=== PATIENT | female | born 1950 | race Caucasian/White ===

== ENCOUNTER 2019-06-04 12:14 | Day surgery (SDC) | payer MEDICARE, OTHER ==
[2019-06-04] MEDS ORDERED: Depo-Medrol 40 MG/ML IM ONE (12:15)
[2019-06-04] MEDS ORDERED: Marcaine 0.5% SDV 10 ML IJ ONE (12:15)
[2019-06-04] MEDS ORDERED: Xylocaine 1% Vial 30 ML PF IJ ONE (12:15)
--- NOTE | 2019-06-05 02:40 | XRAY ---
Indication: Right SI joint injection. Intraoperative fluoroscopy was provided for 14 seconds. A single digital lateral image demonstrates the spinal needle tip to be projected over the mid sacrum. I do not have a PA image. Correlate with intraoperative findings/report.
--- NOTE | 2019-06-05 12:03 | XRAY ---
14 seconds fluoroscopy time in surgery for right SI joint injection.
== END 2019-06-04 13:36 | disposition home or self-care (01) ==
LOC: SDC-PAIN 12:14
PROVIDERS: ATTEND Psychiatry & Neurology Pain Medicine
DX: M46.1 Sacroiliitis, not elsewhere classified (principal); I25.10 Atherosclerotic heart disease of native coronary artery without angina pectoris; F41.8 Other specified anxiety disorders; Z79.899 Other long term (current) drug therapy
CPT/HCPCS: 72020; 77002; G0260; 27096; J1030; J2001

== ENCOUNTER 2019-06-10 06:36 | Day surgery (SDC) | payer MEDICARE, OTHER ==
[2019-06-10] MEDS ORDERED: Lactated Ringers 1,000 ML IV ONE (06:45)
[2019-06-10] MEDS ORDERED: TETRACAINE 0.5% STERI-UNIT SOL OP ONE ×2 (07:00)
[2019-06-10] MEDS ORDERED: Ak-Dilate OPHTHALMIC*** 1.065 ML, Cyclogyl 1% OPHTH SOL 5 ML 1.065 ML, GATIFLOXACIN 0.5... OP ONE ×4 (07:00)
[2019-06-10] MEDS ORDERED: Lactated Ringers 1,000 ML IV SCH (07:00)
[2019-06-10] MEDS ORDERED: BETADINE 5% OPHTHALMIC 30 ML OP ONE (10:00)
[2019-06-10] MEDS ORDERED: Epinephrine Preservative Free 1 MG/ML INTRAOP ONE (10:00)
[2019-06-10] MEDS ORDERED: Zofran 4 MG/2 ML VIAL IV PRN (10:00)
[2019-06-10] MEDS ORDERED: ACETAZOLAMIDE 250 MG TABLET PO ONE (10:00)
[2019-06-10] MEDS ORDERED: BSS 500 ML, Fortaz/Tazicef 1 GM** 0.2 G IO ONE ×2 (10:00)
[2019-06-10] MEDS ORDERED: LIDOCAINE HCL 1% AMPUL 5 ML IJ ONE (10:00)
[2019-06-10] MEDS ORDERED: DIPRIVAN 200 MG/20 ML IV ONE (10:02)
[2019-06-10 11:46] VITALS: O2SAT 94
[2019-06-10 11:55] VITALS: BP 132/78; PULSE 68
--- NOTE | 2019-06-10 15:33 | OP ---
DATE/TIME OF OPERATION: 06/10/2019 1002 TIME DICTATED: 1442 PREOPERATIVE DIAGNOSIS: Senile cataract of right eye. POSTOPERATIVE DIAGNOSIS: Senile cataract of right eye. SURGEON: Ally Bar MD FIGHTING VEHICLE INFANTRYMAN: None. OPERATION: Cataract extraction of right eye with an intraocular lens implant. STANDARD __X___ COMPLEX ANESTHESIA: MAC. ___X___ Monitored anesthesia care in combination with topical and intra-cameral anesthesia (because of the established specific risk of reflux, arrhythmias, or an anxiety attack associated with ocular manipulation as well as difficulty of the welt beater to manage such potentially catastrophic events while simultaneously attempting to complete the surgical procedure, it was deemed necessary for the patient's safety to have an anesthesiologist or a nurse mortgage loan coordinator present during the procedure whenever possible. The anesthesiologist or the nurse mortgage loan coordinator was utilized to monitor and regulate the intravenous sedation of the patient, so the patient was cooperative, relaxed, and comfortable). Topical anesthesia using Tetracaine eye drops together with intra cameral anesthesia using Lidocaine 1% MPF. The nurse was utilized to monitor the patient. ANESTHESIA PROVIDER: Dudley Barrow CRNA. COMPLICATIONS: None. BLOOD LOSS: None. INDICATIONS: The patient is undergoing cataract surgery in the hopes of eliminating the visual complaints and difficulty. PROCEDURE: After arriving at the facility's outpatient surgery area, an IV was started; the patient was given 5 mg of p.o. Versed. (If an anesthesia provider was not monitoring the patient) The patient was then given topical anesthetic Tetracaine eye drops. A cotton pellet was soaked into a solution of a combination of Zymaxid 0.5%, Sina-Synephrine 2.5% and Ocufen (other drops might have been substituted referenced in the patient's record). The pellet was inserted by the RN into the lower conjunctival cul-de-sac with a sterile forceps and left for 20 minutes. The pellet was then removed by the RN with a sterile forceps before taking the patient to the operating room. The preoperative area nurse identified the patient and marked the correct eye to be operated on. I identified the correct eye to be operated on and marked it appropriately in the outpatient surgery area. The patient was then taken into the operating room. Tetracaine eye drops were installed again in the correct eye. The eyelids and the lashes and the lid margins were scrubbed with Betadine solution. One drop of the diluted Betadine solution was placed in the conjunctival cul-de-sac for 45 seconds and then was irrigated. A drop of Tetracaine Gel was placed in the conjunctival cul-de-sac. The patient's forehead was taped to secure it during the procedure. The patient was monitored. The patient was then draped in the usual way for this procedure. An eye speculum was used to separate the eyelids. The eye was then fixated and a temporal 2.5 mm incision was made in the clear cornea temporally at the limbus. Through the incision, 0.25 cc of 1% non-preserved lidocaine was injected into the anterior chamber for intracameral anesthesia. The anterior chamber was then filled with viscoelastic. The pupil was small. I felt that it would be safer to mechanically dilate the pupil. A Malyugin ring was used at this point which dilated the pupil. That was removed at the end of the procedure prior to aspiration of the viscoelastic from the anterior chamber and posterior to the intraocular lens implant. The cataract had a great amount of cortical changes. That rendered seeing the anterior capsule difficult for a safe performance of an anterior capsulotomy. I injected an air bubble into the anterior chamber. I then injected 1 ML of vision blue solution into the anterior chamber. The vision blue solution was irrigated from the anterior chamber after 30 seconds. The anterior capsule was stained which facilitated performing the anterior capsulotomy safely. After that was completed, a cystotome was introduced into the anterior chamber and a round anterior capsulotomy was performed. The capsule was removed by a forceps. Hydrodissection was next carried utilizing a 25-gauge cannula and balanced salt solution to delineate the cortical material from the capsule and the nucleus from the cortical material. The nucleus was rotated freely into the capsular bag with no difficulty. The phaco tip of the [employer] Phaco[employer]ulsifier was introduced into the anterior chamber and two grooves were made into the nucleus 90 degrees apart. Using two spatulas resulted into the nucleus being fractured into four quadrants. The phaco tip was then used to remove each quadrant of the nucleus. Viscoelastic was used during this process to protect the corneal endothelium. Once the entire nucleus was removed, the phaco tip then was removed and the irrigation tip was introduced into the eye and the cortex was removed. The posterior capsule was polished. It was noticed that there was a tear into the posterior capsule with few vitreous strands into the pupil plan. An anterior vitrectomy was performed. A 23.50 diopter, [id number], posterior chamber lens implant, was inspected and found to be grossly normal. The implant was inserted into the implant injector cartridge; Viscoelastic again was introduced into the anterior chamber, which filled the capsular bag. The implant injector's cartridge tip was placed at the limbal wound and the posterior chamber implant was released into the capsular bag and rotated appropriately. The implant was found to be into the capsular bag and it was centered. 0.2 ml of Tri-Moxi was introduced via 27 gauge cannula into the vitreous cavity through the ciliary processes. Viscoelastic was aspirated from the anterior chamber and posterior to the intraocular lens implant from the capsular bag using the irrigating tip. The anterior chamber was irrigated and filled with 5 cc antibiotic solution (500 cc of BSS plus 2 ml of Fortaz 100 mg/ml) ( if patient was not allergic to the medication). The lips of the corneal incision were hydrated using BSS solution. The anterior chamber was checked and found to be water tight. __X__ One drop each of antibiotic, steroid and NSAID drops (refer to chart for drops used) were placed in the conjunctival cul-de-sac of the operated eye. Patient tolerated the procedure quite well and left the operating room in satisfactory condition. DISCHARGE SUMMARY: The patient was released in stable condition. The patient and those with the patient were given an instruction sheet as of how to care for the eye after surgery as well as counseling on any abnormal laboratory studies by the postoperative RN. The patient was also given an appointment card for follow-up in the office and is to call immediately for any difficulties including but not limited to pain in the eye, decreased vision, discharge from the eye, headache and or fever. DISCHARGE DIAGNOSIS: Pseudophakia of right eye.
== END 2019-06-10 11:40 | disposition home or self-care (01) ==
LOC: SDC 06:36
PROVIDERS: ATTEND Ophthalmology
DX: H25.811 Combined forms of age-related cataract, right eye (principal); I10 Essential (primary) hypertension; E07.9 Disorder of thyroid, unspecified; F41.9 Anxiety disorder, unspecified; M19.90 Unspecified osteoarthritis, unspecified site; Z79.899 Other long term (current) drug therapy
CPT/HCPCS: C1780; J0171; J2704; A9270-GY

== ENCOUNTER 2020-03-10 09:46 | Day surgery (SDC) | payer MEDICARE, OTHER ==
[2020-03-10] MEDS ORDERED: Marcaine 0.5% SDV 10 ML IM ONE (09:47)
[2020-03-10] MEDS ORDERED: Depo-Medrol 40 MG/ML IM ONE (09:47)
[2020-03-10] MEDS ORDERED: Ketamine HCl 50 MG/ML ONE (11:35)
[2020-03-10] MEDS ORDERED: DIPRIVAN 200 MG/20 ML IV ONE (11:35)
--- NOTE | 2020-03-10 12:30 | XRAY ---
Indication: Bilateral SI joint injection. Intraoperative fluoroscopy was provided for 19 seconds. 4 digital spot images submitted for interpretation demonstrates posterior needle tip projecting over the inferior left and right SI joints. Correlate with intraoperative findings/report.
--- NOTE | 2020-03-10 14:26 | XRAY ---
19 seconds of fluoroscopy was used in surgery for a bilateral SI joint injection.
[2020-03-10] MEDS ORDERED: Lactated Ringers 1,000 ML IV ONE (14:53)
== END 2020-03-10 11:57 | disposition home or self-care (01) ==
LOC: SDC-PAIN 09:46
PROVIDERS: ATTEND Psychiatry & Neurology Pain Medicine
DX: M46.1 Sacroiliitis, not elsewhere classified (principal); M06.9 Rheumatoid arthritis, unspecified; I25.10 Atherosclerotic heart disease of native coronary artery without angina pectoris; H40.9 Unspecified glaucoma; F41.8 Other specified anxiety disorders; Z79.899 Other long term (current) drug therapy
CPT/HCPCS: 64451; 72202; 77002; J1030; J2704

== ENCOUNTER 2020-03-31 14:43 | Day surgery (SDC) | payer MEDICARE, OTHER ==
[2020-03-31] MEDS ORDERED: Depo-Medrol 40 MG/ML IM ONE (14:44)
[2020-03-31] MEDS ORDERED: Xylocaine 1% Vial 30 ML PF IJ ONE (14:44)
[2020-03-31] MEDS ORDERED: Marcaine 0.5% SDV 10 ML IJ ONE (14:44)
--- NOTE | 2020-03-31 16:55 | XRAY ---
Indication: Left hip injection. Intraoperative fluoroscopy was provided for 50 seconds. Single digital spot image submitted for interpretation demonstrates needle tip projecting just lateral to the left femur neck. Small amount of contrast injected for needle tip placement. Correlate with intraoperative findings/report.
--- NOTE | 2020-03-31 16:55 | XRAY ---
Indication: Right hip injection. Intraoperative fluoroscopy was provided for 1 minute 4 seconds. Single digital spot image submitted for interpretation demonstrates needle tip projecting just lateral to the right femur neck. Small amount of contrast injected for needle tip placement. Correlate with intraoperative findings/report.
--- NOTE | 2020-03-31 17:18 | XRAY ---
50 seconds of fluoroscopy was used in surgery for a left intra-articular hip injection.
--- NOTE | 2020-03-31 17:18 | XRAY ---
1 minute 4 seconds of fluoroscopy was used in surgery for a right intra-articular hip injection.
== END 2020-03-31 16:36 | disposition home or self-care (01) ==
LOC: SDC-PAIN 14:43
PROVIDERS: ATTEND Psychiatry & Neurology Pain Medicine
DX: M16.0 Bilateral primary osteoarthritis of hip (principal); Z79.899 Other long term (current) drug therapy
CPT/HCPCS: 20610; 73501; 77002; J1030; J2001; Q9966

== ENCOUNTER 2020-07-14 12:40 | Day surgery (SDC) | payer MEDICARE, OTHER ==
[2020-07-14] MEDS ORDERED: Xylocaine 1% Vial 30 ML PF IJ ONE (12:41)
[2020-07-14] MEDS ORDERED: Depo-Medrol 40 MG/ML IM ONE (12:41)
[2020-07-14] MEDS ORDERED: BUPIVACAINE 0.5% VIAL IJ ONE (12:41)
--- NOTE | 2020-07-14 15:04 | XRAY ---
Indication: Left greater trochanter bursa injection. Intraoperative fluoroscopy was provided for 9 seconds. Single digital spot image submitted for interpretation demonstrates needle tip just lateral to the left femur greater trochanter. Small amount of contrast injected for needle tip placement. Correlate with intraoperative findings/report.
--- NOTE | 2020-07-14 15:06 | XRAY ---
Indication: Right greater trochanter bursa injection. Intraoperative fluoroscopy was provided for 11 seconds. Single digital spot image submitted for interpretation demonstrates needle tip just lateral to the right femur greater trochanter. Small amount of contrast injected for needle tip placement. Correlate with intraoperative findings/report.
--- NOTE | 2020-07-14 15:14 | XRAY ---
11 seconds of fluoroscopy was used in surgery for a right greater trochanteric bursa injection.
--- NOTE | 2020-07-14 15:14 | XRAY ---
9 seconds of fluoroscopy was used in surgery for a left greater trochanteric bursa injection.
== END 2020-07-14 14:42 | disposition home or self-care (01) ==
LOC: SDC-PAIN 12:40
PROVIDERS: ATTEND Psychiatry & Neurology Pain Medicine
DX: M70.62 Trochanteric bursitis, left hip (principal); M70.61 Trochanteric bursitis, right hip; F41.8 Other specified anxiety disorders; I25.10 Atherosclerotic heart disease of native coronary artery without angina pectoris; Z79.899 Other long term (current) drug therapy
CPT/HCPCS: 20610; 73501; 77002; J1030; J2001; Q9966

== ENCOUNTER 2021-03-23 15:07 | Day surgery (SDC) | payer MEDICARE, OTHER ==
[2021-03-23] MEDS ORDERED: Xylocaine 1% Vial 30 ML PF IJ ONE (15:08)
[2021-03-23] MEDS ORDERED: Sodium Chloride 0.9(Preservative Free) 10 ML IJ ONE (15:08)
[2021-03-23] MEDS ORDERED: Depo-Medrol 40 MG/ML IM ONE (15:08)
--- NOTE | 2021-03-23 20:06 | XRAY ---
Indication: Left L4-S1 transforaminal MATTHEW. Intraoperative fluoroscopy provided for 24 seconds. 2 digital spot image submitted for interpretation demonstrates posterior needle tips projecting over the left L4 and L5 nerve roots. Small amount of contrast injected for needle tip placement. Correlate with intraoperative findings/report.
--- NOTE | 2021-03-24 08:37 | XRAY ---
24 seconds fluoroscopy time in surgery for left L4-S1 transforaminal MATTHEW.
== END 2021-03-23 17:22 | disposition home or self-care (01) ==
LOC: SDC-PAIN 15:07
PROVIDERS: ATTEND Psychiatry & Neurology Pain Medicine
DX: M54.16 Radiculopathy, lumbar region (principal); I25.10 Atherosclerotic heart disease of native coronary artery without angina pectoris; F41.9 Anxiety disorder, unspecified; F32.9 Major depressive disorder, single episode, unspecified; M06.9 Rheumatoid arthritis, unspecified; Z79.899 Other long term (current) drug therapy
CPT/HCPCS: 64483; 64484; 72020; 77003; J1030; J2001; Q9966

== ENCOUNTER 2021-04-11 05:49 | Day surgery (SDC) | payer MEDICARE, OTHER ==
[2021-04-11] MEDS ORDERED: Lactated Ringers 1,000 ML IV SCH (06:30)
[2021-04-11] MEDS ORDERED: DIPRIVAN 200 MG/20 ML IV ONE ×2 (07:56→08:20)
[2021-04-11 09:10] VITALS: O2SAT 98
[2021-04-11 09:15] VITALS: BP 136/70; PULSE 62
--- NOTE | 2021-04-12 08:48 | OP ---
SURGERY DATE/TIME: 04/11/2021 0758 PREOPERATIVE DIAGNOSIS: History of colon polyps and positive Cologuard test. POSTOPERATIVE DIAGNOSIS: Small polyps in the ascending, sigmoid and rectum. PROCEDURE: Colonoscopy with cold forceps biopsies. SURGEON: Dr. Menendez. ANESTHESIA: MAC. Medications given by anesthesia department. HISTORY: The patient is a 70 year-old white female who reports having colon polyps on examinations before. She reports Dr. Daniel Bell was doing them about every two years until he left and she has not had an evaluation since that time. The patient did show up with a positive Cologuard and prompted her to request doing her colonoscopy. The patient was reappraised of the risks of the procedure including the risk of perforation, phlebitis, untoward reaction to medication, bleeding and missed lesions. The patient verbalized her understanding and desired to have the procedure performed. DESCRIPTION OF PROCEDURE: The patient was given the medications by the anesthesia department. She had continuous pulse oximetry, ECG monitoring, intermittent blood pressure monitoring and tidal CO2 monitoring during the examination. She was placed in the left lateral decubitus position. A digital rectal examination was performed and revealed small hemorrhoids, normal anal sphincter tone and no masses. The flexible Olympus pediatric colonoscope was used to intubate the rectum. A view of the colon was developed sequentially to the cecum. Upon insertion and withdrawal including a retroflex view in the rectum, was noted one small polyp measuring approximately 0.7 cm in size in the ascending colon biopsied using cold biopsy technique destroying the lesion. There was also noted to be small polyp in the sigmoid colon likewise biopsied and one in the rectum that was noted on retroflex view. These were also biopsied to destruction using cold biopsy forceps. The scope was removed from the patient who tolerated the procedure well and was sent back to OP recovery in good condition. The prep was noted to be fair to good.
== END 2021-04-11 09:15 | disposition home or self-care (01) ==
LOC: SDC 05:49
PROVIDERS: ATTEND Family Medicine
DX: R19.5 Other fecal abnormalities (principal); D12.2 Benign neoplasm of ascending colon; Z86.010 Personal history of colon polyps; K64.9 Unspecified hemorrhoids; K62.1 Rectal polyp
CPT/HCPCS: 88305; J2704

== ENCOUNTER 2021-06-15 16:23 | Day surgery (SDC) | payer MEDICARE, OTHER ==
[2021-06-15] MEDS ORDERED: Depo-Medrol 40 MG/ML IM ONE (16:24)
[2021-06-15] MEDS ORDERED: Xylocaine 1% Vial 30 ML PF IJ ONE (16:24)
[2021-06-15] MEDS ORDERED: BUPIVACAINE 0.5% VIAL IJ ONE (16:24)
--- NOTE | 2021-06-16 11:21 | XRAY ---
23 seconds fluoroscopy time in surgery for bilateral SI joint injections.
--- NOTE | 2021-06-18 23:27 | XRAY ---
Indication: Bilateral SI joint injections. Intraoperative fluoroscopy was provided for 23 seconds. 4 digital spot images submitted for interpretation demonstrate a needle tip in the projection of the inferior margin of the left and right sacroiliac joints. Correlate with intraoperative findings/report.
== END 2021-06-15 17:45 | disposition home or self-care (01) ==
LOC: SDC-PAIN 16:23
PROVIDERS: ATTEND Psychiatry & Neurology Pain Medicine
DX: M46.1 Sacroiliitis, not elsewhere classified (principal); Z79.899 Other long term (current) drug therapy
CPT/HCPCS: 27096; 72202; 77002; J1030; J2001; G0260

== ENCOUNTER 2021-07-13 14:43 | Day surgery (SDC) | payer MEDICARE, OTHER ==
[2021-07-13] MEDS ORDERED: Sodium Chloride 0.9(Preservative Free) 10 ML IJ ONE (14:44)
[2021-07-13] MEDS ORDERED: Depo-Medrol 40 MG/ML IM ONE (14:44)
[2021-07-13] MEDS ORDERED: Xylocaine 1% Vial 30 ML PF IJ ONE (14:44)
--- NOTE | 2021-07-13 17:00 | XRAY ---
Indication: Left L4-S1 transforaminal MATTHEW. Intraoperative fluoroscopy provided for 37 seconds. 4 digital spot image submitted for interpretation demonstrates posterior needle tips projecting over the expected left L4 and L5 nerve roots. Small amount of contrast injected for needle tip placement. Correlate with intraoperative findings/report.
--- NOTE | 2021-07-13 20:54 | XRAY ---
37 seconds of fluoroscopy was used in surgery for a left L4-S1 transforaminal MATTHEW.
== END 2021-07-13 16:25 | disposition home or self-care (01) ==
LOC: SDC-PAIN 14:43
PROVIDERS: ATTEND Psychiatry & Neurology Pain Medicine
DX: M54.16 Radiculopathy, lumbar region (principal); Z79.899 Other long term (current) drug therapy
CPT/HCPCS: 36415; 64483; 64484; 72100; 77003; 82306; 84443; 85025; 87624; 88175; J1030; J2001; Q9966

== ENCOUNTER 2023-07-21 20:54 | Observation (INO) | payer MEDICARE, OTHER ==
[2023-07-21] MEDS ORDERED: DUONEB 0.5-3 MG/3 ml Neb IH ONE ×4 (21:57→23:32)
[2023-07-21 22:34] LABS: Absolute Neutrophil Ct (ANC) 3.84 x10^3/uL (1.4-6.9); BASOPHIL % 0.5 % (0.0-0.4); Basophil (Absolute #) 0.03 x10^3/uL (0-0.4); Eosinophil % 3.6 % (0.00-5.0); Eosinophil (Absolute #) 0.24 x10^3/uL (0-0.5); Hematocrit 39.3 % (35-47); Hemoglobin 12.3 g/dL (12.0-16.0); IMMATURE GRAN # 0.02 x10^3u/L (0.00-0.03); IMMATURE GRAN % 0.3 % (0.00-0.4); Lymphocyte (Absolute #) 1.94 x10^3/uL (1.0-4.6); Lymphocytes % 29.4 % (24.0-44.0); Mean Cell Volume 97.5 fL (78-100); Mean Corpuscular Hemoglobin 30.5 pg (26-32); Mean Corpuscular Hgb Concent. 31.3 g/dL (32-36); Mean Platelet Volume 10.4 fL (7.5-11.0); Monocyte (Absolute #) 0.53 x10^3/uL (0.0-1.3); Neutrophil % 58.2 % (36.0-66.0); Platelet Count 301 x10^3/uL (150-450); Red Blood Count 4.03 x10^6/uL (4.1-5.4); White Blood Count 6.6 x10^3/uL (4.0-10.5)
[2023-07-21 22:54] LABS: ALBUMIN 4.1 g/dL (3.5-5.0); ALKALINE PHOSPHATASE 82 U/L (38-126); ANION GAP 10.1 MEQ/L (5-15); BLOOD UREA NITROGEN 13 mg/dL (7-17); CHLORIDE 107 mmol/L (98-107); Calcium 9.4 mg/dL (8.4-10.2); Carbon Dioxide 28 mmol/L (22-30); Creatinine 1 0.68 mg/dL (0.52-1.04); EST GLOMERULAR FILTRATION RATE > 60.0 ML/MIN; Glucose 109 mg/dL (74-106); Potassium 3.9 mmol/L (3.5-5.1); SGOT/AST 31 U/L (14-36); SGPT/ALT 24 U/L (0-35); SODIUM 142 mmol/L (137-145); Total Protein 6.6 g/dL (6.3-8.2)
[2023-07-21 23:16] LABS: INFLUENZA A NEGATIVE (NEGATIVE); INFLUENZA B NEGATIVE (NEGATIVE); RESPIRATORY SYNCTIAL VIRUS NEGATIVE (NEGATIVE); SARS-CoV-2 Xpert Express NEGATIVE (NEGATIVE)
[2023-07-21] MEDS ORDERED: solu-MEDROL 125 MG, Sterile H2O 10 ml 2 ML IV ONE ×2 (23:28)
[2023-07-21] MEDS ORDERED: Sterile H2O 10 ml IJ ONE (23:30)
[2023-07-21] MEDS ORDERED: solu-MEDROL ONE (23:31)
--- NOTE | 2023-07-22 00:47 | ERPHSYRPT ---
- History of Present Illness Time Seen by Provider: 07/21/23 21:35 Source: patient Exam Limitations: no limitations Patient Subjective Stated Complaint: cough and shortness of breath since sunday Triage Nursing Assessment: inspiratory and expiratory rubs noted. pt coughs when tries to breathe deeply. Physician History: 73yo f presents w/ complaints of sob cough. Pt states she was in [place] on vacation yesterday and started having a significant dry cough. Pt reports she was seen at urgent care in [place] and told she had bronchitis, was not started on medication at that time. Pt states her cough has worsened and she is not very wheezy, feels like her chest is tight when she coughs, and complains of sinus congestion and runny nose. Pt is not aware of sick contacts but did travel by plane. Pt currently denies cp, n/v/abdominal pain. Timing/Duration: yesterday Cough Quality/Degree: moderate, dry cough Possible Cause: no prior episodes Modifying Factors: Improves With: coughing, deep breath Associated Symptoms: denies symptoms Allergies/Adverse Reactions: No Known Drug Allergies Allergy (Verified 06/10/19 06:51) Home Medications: Ascorbic Acid [Vitamin C] 500 mg PO DAILY 06/04/19 [History] Carvedilol 3.125 mg [Coreg 3.125 MG] 3.125 mg PO BID 06/04/19 [History] Escitalopram Oxalate [Lexapro] 20 mg PO DAILY 06/04/19 [History] Ezetimibe [Zetia] 10 mg PO DAILY 06/04/19 [History] Levothyroxine Sodium 100 Mcg [Synthroid 100 Mcg] 100 mcg PO DAILY 06/04/19 [History] Meloxicam [Mobic] 15 mg PO DAILY 06/04/19 [History] Pregabalin [Lyrica] 75 mg PO BID 06/04/19 [History] Ropinirole HCl 0.5 mg [Requip 0.5 MG] 1.5 mg PO DAILY 06/04/19 [History] Fenofibrate 160 mg PO DAILY 04/08/21 [History] Anastrozole [Arimidex] 1 mg PO HS 07/21/23 [History] Aripiprazole [Abilify] 2 mg PO DAILY 07/21/23 [History] Calcium Carbonate/Vitamin D3 [Super Calcium 600-Vit D3 400] 1 tab PO HS 07/21/23 [History] Famotidine [Acid Controller] 20 mg PO HS 07/21/23 [History] Guaifenesin [Mucinex] 600 mg PO DAILY 07/21/23 [History] Hx Tetanus, Diphtheria Vaccination/Date Given: No Hx Influenza Vaccination/Date Given: No Hx Pneumococcal Vaccination/Date Given: Yes Immunizations Up to Date: Yes Travel Risk - International Travel Have you traveled outside of the country in past 3 weeks: No - Coronavirus Screening Symptoms: Cough: New Onset, Shortness of Breath, Headaches/Body Aches/Fatigue Close contact with a COVID-19 positive Pt in past 14-21 Days: No - Vaccine Status Have you recieved a Covid-19 vaccination: Yes Cat Scan Tech: Moderna - Vaccination Dates Date of 2cond Vaccination (if applicable): 2020 - Review of Systems Constitutional: No Fever, No Chills Eyes: No Symptoms Ears, Nose, & Throat: Sinus Drainage Respiratory: Cough, Dyspnea, Wheezing Cardiac: No Chest Pain, No Edema, No Syncope Abdominal/Gastrointestinal: No Abdominal Pain, No Nausea, No Vomiting, No Diarrhea Musculoskeletal: No Back Pain, No Neck Pain Neurological: No Symptoms, No Dizziness, No Focal Weakness, No Sensory Changes - Past Medical History Neurological History: Migraines ENT History: Glaucoma Cardiac History: Coronary Artery Disease Respiratory History: No Pertinent History Endocrine Medical History: Hypothyroidism Musculoskeletal History: Osteoarthritis GI Medical History: No Pertinent History History: No Pertinent History Psycho-Social History: Depression Female Reproductive Disorders: No Pertinent History, Breast Cancer Other Medical History: partial blockage in the heart, buldging discs in the back. - Past Surgical History Past Surgical History: Yes Neuro Surgical History: No Pertinent History Cardiac: Cardiac Catheterization Respiratory: No Pertinent History Gastrointestinal: No Pertinent History Genitourinary: No Pertinent History Musculoskeletal: No Pertinent History Female Surgical History: Section Other Surgical History: hemorrhoidectomy, 03/14 lumpectomy for breast cancer - Social History Smoking Status: Current every day smoker How long have you smoked: 30 Exposure to second hand smoke: No Drug Use: none Patient Lives Alone: Yes - Nursing Vital Signs Nursing Vital Signs: Initial Vital Signs Temperature 98.4 F 07/21/23 21:21 Pulse Rate 67 07/21/23 21:21 Respiratory Rate 22 07/21/23 21:21 Blood Pressure 174/84 07/21/23 21:21 O2 Sat by Pulse Oximetry 90 L 07/21/23 21:21 Pain Scale Pain Intensity 3 - Physical Exam General Appearance: no apparent distress, alert Ears, Nose, Throat Exam: normal ENT inspection, TMs normal, pharynx normal, moist mucous membranes Respiratory Exam: diminished breath sounds, wheezing (diffuse expiratory wheezing) Cardiovascular Exam: regular rate/rhythm, normal heart sounds Gastrointestinal/Abdomen Exam: soft, No tenderness SpO2: 95 O2 Delivery: Nasal Cannula (3L) - Course EKG Interpreted by Me: RATE, Sinus Rhythm, Left [place] Deviation, NORMAL INTERVALS, Right Bundle Branch Block, NORMAL ST-T - Radiology Exams Chest X-ray Interpretation: Interpreted by me, No Fracture, No Pneumonia, No Pneumothorax, No Infiltrates Ordered Tests: Active Orders 24 hr Category Date Time Status EKG-ER Only STAT Care 07/21/23 21:57 Active CHEST 2 VIEWS (PA AND LAT) Stat Exams 07/21/23 21:57 Taken CBC W DIFF Stat Lab 07/21/23 22:31 Completed CMP Stat Lab 07/21/23 22:31 Completed TROPONIN Q4H Lab 07/21/23 22:31 Completed TROPONIN Q4H Lab 07/22/23 02:00 Ordered TROPONIN Q4H Lab 07/22/23 06:00 Ordered Respiratory Therapy Assessment DAILY RT 07/21/23 22:23 Completed Respiratory Therapy Assessment DAILY RT 07/21/23 23:38 Completed Transfer Order Routine Transfer 07/22/23 Ordered Medication Summary Discontinued Medications Generic Name Dose Route Start Last Admin Trade Name Freq PRN Reason Stop Dose Admin Albuterol/Ipratropium 3 ml 07/21/23 21:57 07/21/23 22:15 Ipratropium/Albuterol Sulfate 3 Ml Ampul.Neb IH 07/21/23 21:58 3 ml STAT ONE Administration Albuterol/Ipratropium Confirm 07/21/23 22:16 Ipratropium/Albuterol Sulfate 3 Ml Ampul.Neb Administered 07/21/23 22:17 Dose 3 ml IH .STK-MED ONE Albuterol/Ipratropium 3 ml 07/21/23 23:28 07/21/23 23:42 Ipratropium/Albuterol Sulfate 3 Ml Ampul.Neb IH 07/21/23 23:29 3 ml STAT ONE Administration Albuterol/Ipratropium Confirm 07/21/23 23:32 Ipratropium/Albuterol Sulfate 3 Ml Ampul.Neb Administered 07/21/23 23:33 Dose 3 ml IH .STK-MED ONE Methylprednisolone Sodium 0 mg 07/21/23 23:28 07/21/23 23:31 Succinate 125 mg/ Sterile IV 07/21/23 23:29 125 mg Water 2 ml STAT ONE Administration Methylprednisolone Sodium Succinate Confirm 07/21/23 23:31 Methylprednis Sod Succ 125 Mg/2 Ml Vial Administered 07/21/23 23:32 Dose 125 mg .ROUTE .STK-MED ONE Sterile Water Confirm 07/21/23 23:30 Water For Injection,Sterile 10 Ml Vial Administered 07/21/23 23:31 Dose 10 ml IJ .STK-MED ONE Lab/Rad Data: Laboratory Result Diagrams 07/21/23 22:31 07/21/23 22:31 Laboratory Results 07/21/23 07/21/23 07/21/23 Range/Units 22:31 22:31 22:31 WBC (4.0-10.5) x10^3/uL RBC (4.1-5.4) x10^6/uL Hgb (12.0-16.0) g/dL Hct (35-47) % MCV (78-100) fL MCH (26-32) pg MCHC (32-36) g/dL RDW (11.5-14.0) % Plt Count (150-450) x10^3/uL MPV (7.5-11.0) fL Gran % (36.0-66.0) % Immature Gran % (Auto) (0.00-0.4) % Nucleat RBC Rel Count (0.00-0.1) % Eos # (Auto) (0-0.5) x10^3/uL Immature Gran # (Auto) (0.00-0.03) x10^3u/L Absolute Lymphs (auto) (1.0-4.6) x10^3/uL Absolute Monos (auto) (0.0-1.3) x10^3/uL Absolute Nucleated RBC (0.00-0.01) x10^3u/L Lymphocytes % (24.0-44.0) % Monocytes % (0.0-12.0) % Eosinophils % (0.00-5.0) % Basophils % (0.0-0.4) % Absolute Granulocytes (1.4-6.9) x10^3/uL Basophils # (0-0.4) x10^3/uL Sodium 142 (137-145) mmol/L Potassium 3.9 (3.5-5.1) mmol/L Chloride 107 (98-107) mmol/L Carbon Dioxide 28 (22-30) mmol/L Anion Gap 10.1 (5-15) MEQ/L BUN 13 (7-17) mg/dL Creatinine 0.68 (0.52-1.04) mg/dL Estimated GFR > 60.0 ML/MIN Glucose 109 H (74-106) mg/dL Calcium 9.4 (8.4-10.2) mg/dL Total Bilirubin 0.30 (0.2-1.3) mg/dL AST 31 (14-36) U/L ALT 24 (0-35) U/L Alkaline Phosphatase 82 (38-126) U/L Troponin I < 0.012 (0.000-0.034) ng/mL Serum Total Protein 6.6 (6.3-8.2) g/dL Albumin 4.1 (3.5-5.0) g/dL Influenza Type A Ag NEGATIVE (NEGATIVE) Influenza Type B Ag NEGATIVE (NEGATIVE) RSV (PCR) NEGATIVE (NEGATIVE) SARS-CoV-2 (PCR) NEGATIVE (NEGATIVE) 07/21/23 Range/Units 22:31 WBC 6.6 (4.0-10.5) x10^3/uL RBC 4.03 L (4.1-5.4) x10^6/uL Hgb 12.3 (12.0-16.0) g/dL Hct 39.3 (35-47) % MCV 97.5 (78-100) fL MCH 30.5 (26-32) pg MCHC 31.3 L (32-36) g/dL RDW 14.0 (11.5-14.0) % Plt Count 301 (150-450) x10^3/uL MPV 10.4 (7.5-11.0) fL Gran % 58.2 (36.0-66.0) % Immature Gran % (Auto) 0.3 (0.00-0.4) % Nucleat RBC Rel Count 0.0 (0.00-0.1) % Eos # (Auto) 0.24 (0-0.5) x10^3/uL Immature Gran # (Auto) 0.02 (0.00-0.03) x10^3u/L Absolute Lymphs (auto) 1.94 (1.0-4.6) x10^3/uL Absolute Monos (auto) 0.53 (0.0-1.3) x10^3/uL Absolute Nucleated RBC 0.00 (0.00-0.01) x10^3u/L Lymphocytes % 29.4 (24.0-44.0) % Monocytes % 8.0 (0.0-12.0) % Eosinophils % 3.6 (0.00-5.0) % Basophils % 0.5 (0.0-0.4) % Absolute Granulocytes 3.84 (1.4-6.9) x10^3/uL Basophils # 0.03 (0-0.4) x10^3/uL Sodium (137-145) mmol/L Potassium (3.5-5.1) mmol/L Chloride (98-107) mmol/L Carbon Dioxide (22-30) mmol/L Anion Gap (5-15) MEQ/L BUN (7-17) mg/dL Creatinine (0.52-1.04) mg/dL Estimated GFR ML/MIN Glucose (74-106) mg/dL Calcium (8.4-10.2) mg/dL Total Bilirubin (0.2-1.3) mg/dL AST (14-36) U/L ALT (0-35) U/L Alkaline Phosphatase (38-126) U/L Troponin I (0.000-0.034) ng/mL Serum Total Protein (6.3-8.2) g/dL Albumin (3.5-5.0) g/dL Influenza Type A Ag (NEGATIVE) Influenza Type B Ag (NEGATIVE) RSV (PCR) (NEGATIVE) SARS-CoV-2 (PCR) (NEGATIVE) - Progress Progress: re-examined, unchanged Air Movement: poor Progress Note: 07/22/23 01:30 pt still having significant expiratory wheezing after 2 duoneb tx and 125mg IV methylpred pt hypoxic, requiring 3L O2 to maintain sat decision made to admit for obs and further duoneb tx/IV steroids Blood Culture(s) Obtained: No Antibiotics given: No Discussed with : Evens Will see patient in: hospital (observation) Counseled pt/family regarding: lab results, diagnosis, rad results Medical Desision Making - Discussion of managment Care discussed with:: hospitalist Reviewed:: Test results, Need for additional workup Agreed on:: Treatment plan, place in obs Will see patient: in hospital - Diagnostic Testing Diagnostic test were ordered, analyzed, and reviewed by me: Yes Radiological Interpretation: Interpreted by me, Reviewed by me - Risk of complications Low Risk: Low risk of morbidity from additional dx testing or treatment - Departure Departure Disposition: Observation Clinical Impression: Acute hypoxic respiratory failure Condition: Stable Critical Care Time: No Referrals: SARAVANAN HALLMAN NP [Primary Care Provider] - Follow up/PCP as directed
[2023-07-22] MEDS ORDERED: Docusate Sodium 100 MG PO PRN (02:23)
--- NOTE | 2023-07-22 02:29 | PCM.HP ---
History of Present Illness - Chief Complaint Chief Complaint: SOB Date: 07/22/23 History of Present Illness: This is a 73-year-old female admitted for management AECOPD. She has history of tobacco dependence, hypothyroid, hypertension, Depression, Neuropathy, arthritis, breast cancer 2020. She presented to the ED this evening for evaluation of shortness of breath ongoing x 2 days. She was seen in urgent care on 07/20 and given Omnicef for bilateral ear infections and URI. On arrival to the ED she was afebrile, heart rate 67, sat 90% on room room air, blood pressure 174/84, with notable respiratory difficulty. Labs significant for WBC 6.6; influenza, RSV, COVID all negative. Chest x-ray no infiltrate. In the ED she was given DuoNebs, Solu-Medrol. Currently she states her breathing has improved but still feels SOB at rest. - Review of Systems Eyes: No Symptoms Ears, Nose, & Throat: No Symptoms Respiratory: Cough, Short Of Breath Cardiac: No Symptoms Abdominal/Gastrointestinal: No Symptoms Genitourinary Symptoms: No Symptoms Musculoskeletal: No Symptoms Skin: No Symptoms Neurological: No Symptoms Psychological: No Symptoms Endocrine: No Symptoms Medications & Allergies Home Medications: Home Medication List Ascorbic Acid [Vitamin C] 500 mg PO DAILY 06/04/19 [History Confirmed 07/21/23] Carvedilol 3.125 mg [Coreg 3.125 MG] 3.125 mg PO BID 06/04/19 [History Confirmed 07/21/23] Escitalopram Oxalate [Lexapro] 20 mg PO DAILY 06/04/19 [History Confirmed 07/21/23] Ezetimibe [Zetia] 10 mg PO DAILY 06/04/19 [History Confirmed 07/21/23] Levothyroxine Sodium 100 Mcg [Synthroid 100 Mcg] 100 mcg PO DAILY 06/04/19 [History Confirmed 07/21/23] Meloxicam [Mobic] 15 mg PO DAILY 06/04/19 [History Confirmed 07/21/23] Pregabalin [Lyrica] 75 mg PO BID 06/04/19 [History Confirmed 07/21/23] Ropinirole HCl 0.5 mg [Requip 0.5 MG] 1.5 mg PO DAILY 06/04/19 [History Confirmed 07/21/23] Fenofibrate 160 mg PO DAILY 04/08/21 [History Confirmed 07/21/23] Anastrozole [Arimidex] 1 mg PO HS 07/21/23 [History Confirmed 07/21/23] Aripiprazole [Abilify] 2 mg PO DAILY 07/21/23 [History Confirmed 07/21/23] Calcium Carbonate/Vitamin D3 [Super Calcium 600-Vit D3 400] 1 tab PO HS 07/21/23 [History Confirmed 07/21/23] Famotidine [Acid Controller] 20 mg PO HS 07/21/23 [History Confirmed 07/21/23] Guaifenesin [Mucinex] 600 mg PO DAILY 07/21/23 [History Confirmed 07/21/23] Allergies/Adverse Reactions: Allergies Allergy/AdvReac Type Severity Reaction Status Date / Time No Known Drug Allergies Allergy Verified 06/10/19 06:51 - Past Medical History Past Medical History: Yes Neurological History: Migraines ENT History: Glaucoma Cardiac History: Coronary Artery Disease Respiratory History: No Pertinent History Endocrine Medical History: Hypothyroidism Musculoskelatal History: Osteoarthritis GI Medical History: No Pertinent History History: No Pertinent History Pyscho-Social History: Depression Reproductive Disorders: Breast Cancer Comment: partial blockage in the heart, buldging discs in the back. - Past Surgical History Past Surgical History: Yes Neuro Surgical History: No Pertinent History Cardiac History: Cardiac Catheterization Respiratory Surgery: No Pertinent History GI Surgical History: No Pertinent History Genitourinary Surgical Hx: No Pertinent History Musculskeletal Surgical Hx: No Pertinent History Female Surgical History: Section Other Surgical History: hemorrhoidectomy, 03/14 lumpectomy for breast cancer - Social History Smoking Status: Current every day smoker How long have you smoked: 30 Exposure to second hand smoke: No Alcohol: Occasionally Drug Use: none - Physical Exam Vital Signs: Vital Signs - 24 hr Temp Pulse Resp BP BP Pulse Ox 07/22/23 01:32 95 07/22/23 01:30 60 24 149/74 95 07/22/23 01:00 62 20 159/79 93 L 07/22/23 00:30 62 18 153/74 90 L 07/22/23 00:16 70 18 151/69 95 07/21/23 23:38 68 18 96 07/21/23 23:00 86 18 144/81 95 07/21/23 22:41 63 24 153/85 89 L 07/21/23 22:23 64 18 91 L 07/21/23 22:00 61 22 136/75 90 L 07/21/23 21:21 98.4 F 67 22 174/84 91 L General Appearance: no apparent distress Neurologic Exam: alert, oriented x 3 Eye Exam: PERRL/EOMI Ears, Nose, Throat Exam: normal ENT inspection Respiratory Exam: wheezing, No respiratory distress, No accessory muscle use Cardiovascular Exam: regular rate/rhythm Gastrointestinal/Abdomen Exam: soft Results - Labs Lab/Micro Results: Lab Results-Last 24 Hours 07/21/23 07/21/23 07/21/23 Range/Units 22:31 22:31 22:31 WBC 6.6 (4.0-10.5) x10^3/uL RBC 4.03 L (4.1-5.4) x10^6/uL Hgb 12.3 (12.0-16.0) g/dL Hct 39.3 (35-47) % MCV 97.5 (78-100) fL MCH 30.5 (26-32) pg MCHC 31.3 L (32-36) g/dL RDW 14.0 (11.5-14.0) % Plt Count 301 (150-450) x10^3/uL MPV 10.4 (7.5-11.0) fL Gran % 58.2 (36.0-66.0) % Immature Gran % (Auto) 0.3 (0.00-0.4) % Nucleat RBC Rel Count 0.0 (0.00-0.1) % Eos # (Auto) 0.24 (0-0.5) x10^3/uL Immature Gran # (Auto) 0.02 (0.00-0.03) x10^3u/L Absolute Lymphs (auto) 1.94 (1.0-4.6) x10^3/uL Absolute Monos (auto) 0.53 (0.0-1.3) x10^3/uL Absolute Nucleated RBC 0.00 (0.00-0.01) x10^3u/L Lymphocytes % 29.4 (24.0-44.0) % Monocytes % 8.0 (0.0-12.0) % Eosinophils % 3.6 (0.00-5.0) % Basophils % 0.5 (0.0-0.4) % Absolute Granulocytes 3.84 (1.4-6.9) x10^3/uL Basophils # 0.03 (0-0.4) x10^3/uL Sodium 142 (137-145) mmol/L Potassium 3.9 (3.5-5.1) mmol/L Chloride 107 (98-107) mmol/L Carbon Dioxide 28 (22-30) mmol/L Anion Gap 10.1 (5-15) MEQ/L BUN 13 (7-17) mg/dL Creatinine 0.68 (0.52-1.04) mg/dL Estimated GFR > 60.0 ML/MIN Glucose 109 H (74-106) mg/dL Calcium 9.4 (8.4-10.2) mg/dL Total Bilirubin 0.30 (0.2-1.3) mg/dL AST 31 (14-36) U/L ALT 24 (0-35) U/L Alkaline Phosphatase 82 (38-126) U/L Troponin I < 0.012 (0.000-0.034) ng/mL Serum Total Protein 6.6 (6.3-8.2) g/dL Albumin 4.1 (3.5-5.0) g/dL Influenza Type A Ag (NEGATIVE) Influenza Type B Ag (NEGATIVE) RSV (PCR) (NEGATIVE) SARS-CoV-2 (PCR) (NEGATIVE) 07/21/23 Range/Units 22:31 WBC (4.0-10.5) x10^3/uL RBC (4.1-5.4) x10^6/uL Hgb (12.0-16.0) g/dL Hct (35-47) % MCV (78-100) fL MCH (26-32) pg MCHC (32-36) g/dL RDW (11.5-14.0) % Plt Count (150-450) x10^3/uL MPV (7.5-11.0) fL Gran % (36.0-66.0) % Immature Gran % (Auto) (0.00-0.4) % Nucleat RBC Rel Count (0.00-0.1) % Eos # (Auto) (0-0.5) x10^3/uL Immature Gran # (Auto) (0.00-0.03) x10^3u/L Absolute Lymphs (auto) (1.0-4.6) x10^3/uL Absolute Monos (auto) (0.0-1.3) x10^3/uL Absolute Nucleated RBC (0.00-0.01) x10^3u/L Lymphocytes % (24.0-44.0) % Monocytes % (0.0-12.0) % Eosinophils % (0.00-5.0) % Basophils % (0.0-0.4) % Absolute Granulocytes (1.4-6.9) x10^3/uL Basophils # (0-0.4) x10^3/uL Sodium (137-145) mmol/L Potassium (3.5-5.1) mmol/L Chloride (98-107) mmol/L Carbon Dioxide (22-30) mmol/L Anion Gap (5-15) MEQ/L BUN (7-17) mg/dL Creatinine (0.52-1.04) mg/dL Estimated GFR ML/MIN Glucose (74-106) mg/dL Calcium (8.4-10.2) mg/dL Total Bilirubin (0.2-1.3) mg/dL AST (14-36) U/L ALT (0-35) U/L Alkaline Phosphatase (38-126) U/L Troponin I (0.000-0.034) ng/mL Serum Total Protein (6.3-8.2) g/dL Albumin (3.5-5.0) g/dL Influenza Type A Ag NEGATIVE (NEGATIVE) Influenza Type B Ag NEGATIVE (NEGATIVE) RSV (PCR) NEGATIVE (NEGATIVE) SARS-CoV-2 (PCR) NEGATIVE (NEGATIVE) - Radiology Impressions Radiology Exams & Impressions: Radiology Procedures Category Date Time Status CHEST 2 VIEWS (PA AND LAT) Stat Exams 07/21/23 21:57 Taken Assessment/Plan (1) Acute hypoxic respiratory failure Current Visit: Yes Status: Acute Assessment & Plan: ASSESSMENT #Hypoxia #Possible COPD exacerbation #Viral versus bacterial bronchitis; ear infection; sinus congestions #H/o Depression #H/O Hypothyroid #H/O Tobacco dependence PLAN -Auggment -DuoNebs every 4 -Prednisone 40 mg daily -Supplemental oxygen to maintain saturation 92% -Resume home medications -Nicotine patch PPX: Lovenox Prior encounter performed via telemedicine. Code(s): J96.01 - ACUTE RESPIRATORY FAILURE WITH HYPOXIA Telemedicine Encounter - Telemedicine Encounter Telemedicine Encounter: The entirety of this encounter was performed via Telemedicine"
[2023-07-22] MEDS ORDERED: Augmentin 875-125 Tablet PO SCH (02:45)
[2023-07-22] MEDS ORDERED: Zofran 4 MG/2 ML VIAL IV PRN (02:47)
[2023-07-22] MEDS: Robitussin AC Syrup Unit Dose Cup PO PRN ×2 (03:02→22:41)
[2023-07-22] MEDS: Nicoderm CQ 21 MG TOP SCH ×2 (03:02→22:42)
[2023-07-22 06:06] LABS: Absolute Neutrophil Ct (ANC) 5.49 x10^3/uL (1.4-6.9); BASOPHIL % 0.2 % (0.0-0.4); Basophil (Absolute #) 0.01 x10^3/uL (0-0.4); Eosinophil % 0.2 % (0.00-5.0); Eosinophil (Absolute #) 0.01 x10^3/uL (0-0.5); Hematocrit 40.1 % (35-47); Hemoglobin 12.8 g/dL (12.0-16.0); IMMATURE GRAN # 0.05 x10^3u/L (0.00-0.03); IMMATURE GRAN % 0.8 % (0.00-0.4); Lymphocyte (Absolute #) 0.69 x10^3/uL (1.0-4.6); Lymphocytes % 10.9 % (24.0-44.0); Mean Cell Volume 97.3 fL (78-100); Mean Corpuscular Hemoglobin 31.1 pg (26-32); Mean Corpuscular Hgb Concent. 31.9 g/dL (32-36); Mean Platelet Volume 10.3 fL (7.5-11.0); Monocyte (Absolute #) 0.06 x10^3/uL (0.0-1.3); Neutrophil % 86.9 % (36.0-66.0); Platelet Count 299 x10^3/uL (150-450); Red Blood Count 4.12 x10^6/uL (4.1-5.4); Red Cell Distribution Width 13.7 % (11.5-14.0); White Blood Count 6.3 x10^3/uL (4.0-10.5)
[2023-07-22] MEDS: DUONEB 0.5-3 MG/3 ml Neb IH SCH ×7 (06:39→22:36)
[2023-07-22] MEDS ORDERED: DUONEB 0.5-3 MG/3 ml Neb IH SCH (07:00)
[2023-07-22 07:33] LABS: ANION GAP 13.7 MEQ/L (5-15); BLOOD UREA NITROGEN 13 mg/dL (7-17); CHLORIDE 109 mmol/L (98-107); Calcium 9.2 mg/dL (8.4-10.2); Carbon Dioxide 22 mmol/L (22-30); Creatinine 1 0.58 mg/dL (0.52-1.04); EST GLOMERULAR FILTRATION RATE > 60.0 ML/MIN; Glucose 157 mg/dL (74-106); Potassium 4.1 mmol/L (3.5-5.1); SODIUM 141 mmol/L (137-145)
[2023-07-22] MEDS: TYLENOL 325 MG PO PRN ×2 (07:59→14:04)
--- NOTE | 2023-07-22 08:28 | XRAY ---
Indication: Cough and chest tightness. Comparison: September 23, 2022 PA/lateral chest remains hyperinflated with minimal left base fibrosis/scarring. No focal infiltrate, consolidation, or large effusion. Heart borderline enlarged. Bony thorax intact again with osteopenia, mild degenerative changes, and old left 8 rib fracture. Impression: Nonacute hyperinflated chest with chronic features.
[2023-07-22] MEDS ORDERED: MEDICATION INTERVENTION MC SCH ×2 (08:45)
[2023-07-22] MEDS: Augmentin 875-125 Tablet PO SCH ×2 (09:23→22:40)
[2023-07-22] MEDS: ENOXAPARIN SODIUM SQ SCH (09:24)
[2023-07-22] MEDS: MELOXICAM PO SCH (09:25)
[2023-07-22] MEDS: Tricor 145 MG PO SCH (09:25)
[2023-07-22] MEDS: Zetia 10 MG PO SCH (09:25)
[2023-07-22] MEDS: Lexapro PO SCH (09:25)
[2023-07-22] MEDS: Vitamin C 500 MG PO SCH (09:26)
[2023-07-22] MEDS: Tessalon Perles 100 MG PO SCH ×3 (09:26→22:41)
[2023-07-22] MEDS: LYRICA 75 MG CAP PO SCH ×2 (09:26→22:40)
[2023-07-22] MEDS: DELTASONE 20 MG PO SCH (09:27)
[2023-07-22] MEDS: SYNTHROID 100 MCG PO SCH (09:27)
[2023-07-22] MEDS: Coreg 3.125 MG PO SCH ×2 (09:27→22:40)
[2023-07-22] MEDS: Requip 0.5 MG PO SCH (09:29)
[2023-07-22] MEDS ORDERED: NON-FORMULARY ITEM (Fenofibrate [Fenofibrate] 160 MG Tablet) PO SCH (10:00)
[2023-07-22] MEDS ORDERED: NON-FORMULARY ITEM (Meloxicam [Mobic] 15 MG Tablet) PO SCH (10:00)
[2023-07-22] MEDS ORDERED: ASCORBIC ACID 500 MG PO SCH (10:00)
[2023-07-22] MEDS ORDERED: NON-FORMULARY ITEM (Aripiprazole [Abilify] 2 MG Tablet) PO SCH (10:00)
[2023-07-22] MEDS ORDERED: NON-FORMULARY ITEM (Escitalopram Oxalate [Lexapro] 20 MG Tablet) PO SCH (10:00)
[2023-07-22] MEDS ORDERED: CALCIUM CARBONATE PO SCH (22:00)
[2023-07-22] MEDS ORDERED: Pepcid 20 MG PO SCH (22:00)
[2023-07-22] MEDS ORDERED: [UNRECOGNIZED DRUG - OTHER] PO SCH (22:00)
[2023-07-22] MEDS ORDERED: NON-FORMULARY ITEM (Anastrozole [Arimidex] 1 MG Tablet) PO SCH (22:00)
[2023-07-22] MEDS ORDERED: VITAMIN D3 PO SCH (22:00)
[2023-07-22] MEDS ORDERED: Calcium 500MG W/Vit D Tablet PO SCH (22:00)
[2023-07-23] MEDS: DUONEB 0.5-3 MG/3 ml Neb IH SCH ×3 (02:35→10:54)
--- NOTE | 2023-07-23 05:27 | PCM.NOTE ---
Date and Time: 07/23/23522 Subjective Assessment: HPI: 73-year-old female admitted for management AECOPD. She has history of tobacco dependence, hypothyroid, hypertension, Depression, Neuropathy, arthritis, breast cancer 2020. She presented to the ED this evening for evaluation of shortness of breath ongoing x 2 days. She was seen in urgent care on 07/20 and given Omnicef for bilateral ear infections and URI. On arrival to the ED she was afebrile, heart rate 67, sat 90% on room room air, blood pressure 174/84, with notable respiratory difficulty. Labs significant for WBC 6.6; influenza, RSV, COVID all negative. Chest x-ray no infiltrate. In the ED she was given DuoNebs, Solu-Medrol. 07/23: OBJECTIVE DATA Vital Signs: Vital Signs - 24 hr Temp Pulse Resp BP Pulse Ox 07/23/23 04:00 97.5 F 18 07/22/23 23:08 97.5 F 80 18 131/62 92 L 07/22/23 22:38 84 20 91 L 07/22/23 20:00 97.5 F 87 18 132/61 91 L 07/22/23 18:51 92 H 18 93 L 07/22/23 16:00 98.6 F 90 18 146/68 93 L 07/22/23 15:20 84 18 93 L 07/22/23 11:38 97.7 F 85 18 123/59 92 L 07/22/23 11:05 87 18 92 L 07/22/23 07:16 97.8 F 83 19 137/63 90 L 07/22/23 07:01 84 24 94 L Pain Assessment - Last Documented Pain Intensity 0 Pain Scale Used 0-10 Pain Scale Intake and Output: Intake & Output 07/20/23 07/21/23 07/22/23 07/23/23 11:59 11:59 11:59 11:59 Intake Total 480 480 Balance 480 480 Weight 84.8 kg Lab Results: Lab Results-Last 24 Hours 07/22/23 07/22/23 07/22/23 Range/Units 06:00 06:00 06:00 WBC 6.3 (4.0-10.5) x10^3/uL RBC 4.12 (4.1-5.4) x10^6/uL Hgb 12.8 (12.0-16.0) g/dL Hct 40.1 (35-47) % MCV 97.3 (78-100) fL MCH 31.1 (26-32) pg MCHC 31.9 L (32-36) g/dL RDW 13.7 (11.5-14.0) % Plt Count 299 (150-450) x10^3/uL MPV 10.3 (7.5-11.0) fL Gran % 86.9 H (36.0-66.0) % Immature Gran % (Auto) 0.8 H (0.00-0.4) % Nucleat RBC Rel Count 0.0 (0.00-0.1) % Eos # (Auto) 0.01 (0-0.5) x10^3/uL Immature Gran # (Auto) 0.05 H (0.00-0.03) x10^3u/L Absolute Lymphs (auto) 0.69 L (1.0-4.6) x10^3/uL Absolute Monos (auto) 0.06 (0.0-1.3) x10^3/uL Absolute Nucleated RBC 0.00 (0.00-0.01) x10^3u/L Lymphocytes % 10.9 L (24.0-44.0) % Monocytes % 1.0 (0.0-12.0) % Eosinophils % 0.2 (0.00-5.0) % Basophils % 0.2 (0.0-0.4) % Absolute Granulocytes 5.49 (1.4-6.9) x10^3/uL Basophils # 0.01 (0-0.4) x10^3/uL Sodium 141 (137-145) mmol/L Potassium 4.1 (3.5-5.1) mmol/L Chloride 109 H (98-107) mmol/L Carbon Dioxide 22 (22-30) mmol/L Anion Gap 13.7 (5-15) MEQ/L BUN 13 (7-17) mg/dL Creatinine 0.58 (0.52-1.04) mg/dL Estimated GFR > 60.0 ML/MIN Glucose 157 H (74-106) mg/dL Calcium 9.2 (8.4-10.2) mg/dL Troponin I < 0.012 (0.000-0.034) ng/mL Radiology Exams: Radiology Procedures Category Date Time Status CHEST 2 VIEWS (PA AND LAT) Stat Exams 07/21/23 21:57 Completed Assessment/Plan (1) COPD exacerbation Current Visit: Yes Status: Acute Assessment & Plan: -[place] -DuoNebs every 4 -Prednisone 40 mg daily -Supplemental oxygen to maintain saturation 92% Code(s): J44.1 - CHRONIC OBSTRUCTIVE PULMONARY DISEASE W (ACUTE) EXACERBATION (2) Acute hypoxic respiratory failure Current Visit: Yes Status: Acute Assessment & Plan: -Most likely secondary to COPD exacerbation Code(s): J96.01 - ACUTE RESPIRATORY FAILURE WITH HYPOXIA (3) Bronchitis Current Visit: Yes Status: Acute Code(s): J40 - BRONCHITIS, NOT SPECIFIED ACUTE OR CHRONIC (4) Depression Current Visit: Yes Status: Acute Assessment & Plan: -Resume home medications Code(s): F32.A - DEPRESSION, UNSPECIFIED (5) Hypothyroid Current Visit: Yes Status: Acute Assessment & Plan: -Resume home medications Code(s): E03.9 - HYPOTHYROIDISM, UNSPECIFIED (6) Smoker Current Visit: Yes Status: Acute Assessment & Plan: -nicotine patch Code(s): F17.200 - NICOTINE DEPENDENCE, UNSPECIFIED, UNCOMPLICATED (7) Neuropathy Current Visit: Yes Status: Acute Assessment & Plan: -Resume home medications Code(s): G62.9 - POLYNEUROPATHY, UNSPECIFIED (8) History of breast cancer Current Visit: Yes Status: Acute Assessment & Plan: -Resume home medications Code(s): Z85.3 - PERSONAL HISTORY OF MALIGNANT NEOPLASM OF BREAST
[2023-07-23 07:09] VITALS: RESP 18
[2023-07-23 08:11] LABS: Absolute Neutrophil Ct (ANC) 8.21 x10^3/uL (1.4-6.9); BASOPHIL % 0.1 % (0.0-0.4); Basophil (Absolute #) 0.01 x10^3/uL (0-0.4); Eosinophil % 0.2 % (0.00-5.0); Eosinophil (Absolute #) 0.02 x10^3/uL (0-0.5); Hematocrit 37.1 % (35-47); Hemoglobin 11.9 g/dL (12.0-16.0); IMMATURE GRAN # 0.08 x10^3u/L (0.00-0.03); IMMATURE GRAN % 0.7 % (0.00-0.4); Lymphocyte (Absolute #) 2.03 x10^3/uL (1.0-4.6); Lymphocytes % 18.6 % (24.0-44.0); Mean Cell Volume 97.4 fL (78-100); Mean Corpuscular Hemoglobin 31.2 pg (26-32); Mean Corpuscular Hgb Concent. 32.1 g/dL (32-36); Mean Platelet Volume 10.6 fL (7.5-11.0); Monocyte (Absolute #) 0.57 x10^3/uL (0.0-1.3); Monocytes % 5.2 % (0.0-12.0); Neutrophil % 75.2 % (36.0-66.0); Platelet Count 275 x10^3/uL (150-450); Red Blood Count 3.81 x10^6/uL (4.1-5.4); Red Cell Distribution Width 13.7 % (11.5-14.0); White Blood Count 10.9 x10^3/uL (4.0-10.5)
[2023-07-23 08:51] LABS: ALBUMIN 3.8 g/dL (3.5-5.0); ALKALINE PHOSPHATASE 73 U/L (38-126); ANION GAP 7.7 MEQ/L (5-15); BLOOD UREA NITROGEN 17 mg/dL (7-17); CHLORIDE 109 mmol/L (98-107); Calcium 9.2 mg/dL (8.4-10.2); Carbon Dioxide 28 mmol/L (22-30); Creatinine 1 0.65 mg/dL (0.52-1.04); EST GLOMERULAR FILTRATION RATE > 60.0 ML/MIN; Glucose 98 mg/dL (74-106); Potassium 3.9 mmol/L (3.5-5.1); SGOT/AST 25 U/L (14-36); SGPT/ALT 22 U/L (0-35); SODIUM 140 mmol/L (137-145); Total Protein 6.5 g/dL (6.3-8.2)
[2023-07-23] MEDS: Zetia 10 MG PO SCH (09:34)
[2023-07-23] MEDS: Tessalon Perles 100 MG PO SCH (09:34)
[2023-07-23] MEDS: Augmentin 875-125 Tablet PO SCH (09:34)
[2023-07-23] MEDS: Tricor 145 MG PO SCH (09:35)
[2023-07-23] MEDS: SYNTHROID 100 MCG PO SCH (09:35)
[2023-07-23] MEDS: Vitamin C 500 MG PO SCH (09:35)
[2023-07-23] MEDS: LYRICA 75 MG CAP PO SCH (09:35)
[2023-07-23] MEDS: MELOXICAM PO SCH (09:36)
[2023-07-23] MEDS: Coreg 3.125 MG PO SCH (09:36)
[2023-07-23] MEDS: Lexapro PO SCH (09:36)
[2023-07-23] MEDS: DELTASONE 20 MG PO SCH (09:36)
[2023-07-23] MEDS: ENOXAPARIN SODIUM SQ SCH (09:37)
[2023-07-23] MEDS: Requip 0.5 MG PO SCH (09:42)
[2023-07-23 10:59] VITALS: O2SAT 94
[2023-07-23 11:24] VITALS: BP 140/74; PULSE 71; TEMP 97.5
--- NOTE | 2023-07-23 12:07 | PCM.DS ---
Discharge Summary Date of Admission: 07/22/23 00:56 Date of Discharge: 07/23/23 Admitting Physician: SABRINA BINGHAM MD Primary Care Provider: SARAVANAN HALLMAN Allergies Allergies No Known Drug Allergies Allergy (Verified 06/10/19 06:51) Hospital Summary - Hospital Course Hospital Course: 73-year-old female admitted for management AECOPD. She has history of tobacco dependence, hypothyroid, hypertension, Depression, Neuropathy, arthritis, breast cancer 2020. She presented to the ED this evening for evaluation of shortness of breath ongoing x 2 days. She was seen in urgent care on 07/20 and given Omnicef for bilateral ear infections and URI. On arrival to the ED she was afebrile, heart rate 67, sat 90% on room room air, blood pressure 174/84, with notable respiratory difficulty. Labs significant for WBC 6.6; influenza, RSV, COVID all negative. Chest x-ray no infiltrate. In the ED she was given DuoNebs, Solu-Medrol. No overnight events noted. Patient requesting discharge. Patient does not qualify for home oxygen. Did discuss smoking cessation for which she states she is ready. Will send home with nicotine patch per her request. Additionally will send home with azithromycin, prednisone, nebs/neb machine. Advised close follow up with PCP, may need pulm referral. New Diagnosis: COPD exacerbation New Medications: Azith, prednisone, inhalers, duonebs/neb machine Follow Up: PCP Latest Assessment & Plan (1) COPD exacerbation Current Visit: Yes Status: Acute Assessment & Plan: -[place]in -DuoNebs every 4 -Prednisone 40 mg daily -Supplemental oxygen to maintain saturation 92% Code(s): J44.1 - CHRONIC OBSTRUCTIVE PULMONARY DISEASE W (ACUTE) EXACERBATION (2) Acute hypoxic respiratory failure Current Visit: Yes Status: Acute Assessment & Plan: -Most likely secondary to COPD exacerbation Code(s): J96.01 - ACUTE RESPIRATORY FAILURE WITH HYPOXIA (3) Bronchitis Current Visit: Yes Status: Acute Code(s): J40 - BRONCHITIS, NOT SPECIFIED ACUTE OR CHRONIC (4) Depression Current Visit: Yes Status: Acute Assessment & Plan: -Resume home medications Code(s): F32.A - DEPRESSION, UNSPECIFIED (5) Hypothyroid Current Visit: Yes Status: Acute Assessment & Plan: -Resume home medications Code(s): E03.9 - HYPOTHYROIDISM, UNSPECIFIED (6) Smoker Current Visit: Yes Status: Acute Assessment & Plan: -nicotine patch Code(s): F17.200 - NICOTINE DEPENDENCE, UNSPECIFIED, UNCOMPLICATED (7) Neuropathy Current Visit: Yes Status: Acute Assessment & Plan: -Resume home medications Code(s): G62.9 - POLYNEUROPATHY, UNSPECIFIED (8) History of breast cancer Current Visit: Yes Status: Acute Assessment & Plan: -Resume home medications I spent 35 minutes [id number] with the patient on the day of discharge perform ing discharge exam, discussing hospital stay and discharge instructions with patient and caregivers, preparation of discharge records, prescriptions & referral forms and addressing any questions/concerns the patient had as documented above. - Vitals & Intake/Output Vital Signs: Vital Signs Temperature 97.5 F 07/23/23 11:23 Pulse Rate 71 07/23/23 11:23 Respiratory Rate 18 07/23/23 11:23 Blood Pressure 140/74 07/23/23 11:23 O2 Sat by Pulse Oximetry 94 L 07/23/23 11:23 Intake & Output: Intake & Output 07/21/23 07/22/23 07/23/23 07/24/23 11:59 11:59 11:59 11:59 Intake Total 480 960 Balance 480 960 Weight 84.8 kg - Lab Result Diagrams: 07/23/23 07:48 07/23/23 07:48 Lab Results-Last 24 Hrs: Lab Results-Last 24 Hours 07/23/23 07/23/23 Range/Units 07:48 07:48 WBC 10.9 H (4.0-10.5) x10^3/uL RBC 3.81 L (4.1-5.4) x10^6/uL Hgb 11.9 L (12.0-16.0) g/dL Hct 37.1 (35-47) % MCV 97.4 (78-100) fL MCH 31.2 (26-32) pg MCHC 32.1 (32-36) g/dL RDW 13.7 (11.5-14.0) % Plt Count 275 (150-450) x10^3/uL MPV 10.6 (7.5-11.0) fL Gran % 75.2 H (36.0-66.0) % Immature Gran % (Auto) 0.7 H (0.00-0.4) % Nucleat RBC Rel Count 0.0 (0.00-0.1) % Eos # (Auto) 0.02 (0-0.5) x10^3/uL Immature Gran # (Auto) 0.08 H (0.00-0.03) x10^3u/L Absolute Lymphs (auto) 2.03 (1.0-4.6) x10^3/uL Absolute Monos (auto) 0.57 (0.0-1.3) x10^3/uL Absolute Nucleated RBC 0.00 (0.00-0.01) x10^3u/L Lymphocytes % 18.6 L (24.0-44.0) % Monocytes % 5.2 (0.0-12.0) % Eosinophils % 0.2 (0.00-5.0) % Basophils % 0.1 (0.0-0.4) % Absolute Granulocytes 8.21 H (1.4-6.9) x10^3/uL Basophils # 0.01 (0-0.4) x10^3/uL Sodium 140 (137-145) mmol/L Potassium 3.9 (3.5-5.1) mmol/L Chloride 109 H (98-107) mmol/L Carbon Dioxide 28 (22-30) mmol/L Anion Gap 7.7 (5-15) MEQ/L BUN 17 (7-17) mg/dL Creatinine 0.65 (0.52-1.04) mg/dL Estimated GFR > 60.0 ML/MIN Glucose 98 (74-106) mg/dL Calcium 9.2 (8.4-10.2) mg/dL Total Bilirubin 0.30 (0.2-1.3) mg/dL AST 25 (14-36) U/L ALT 22 (0-35) U/L Alkaline Phosphatase 73 (38-126) U/L Serum Total Protein 6.5 (6.3-8.2) g/dL Albumin 3.8 (3.5-5.0) g/dL - Radiology Exams Ordered Rad Exams-Entire Visit: Radiology Procedures Category Date Time Status CHEST 2 VIEWS (PA AND LAT) Stat Exams 07/21/23 21:57 Completed - Procedures and Test Procedures and Tests throughout Hospitalization: Therapy Orders & Screens 07/21/23 22:23 Respiratory Therapy Assessment DAILY Comment: 07/21/23 23:38 Respiratory Therapy Assessment DAILY Comment: 07/22/23 02:42 Oxygen Nasal Cannula 3 lpm Comment: Diagnosis: SOB Respiratory Therapy Assessment DAILY Comment: Diagnosis: SOB 07/23/23 11:35 Qualify for Home Oxygen TODAY Comment: Diagnosis: Acute Hypoxic Respitory Failure Discharge Exam General Appearance: no apparent distress Neurologic Exam: alert, oriented x 3, cooperative Eye Exam: PERRL Ears, Nose, Throat Exam: normal ENT inspection Neck Exam: normal inspection Respiratory Exam: crackles/rales, wheezing Cardiovascular Exam: regular rate/rhythm, normal heart sounds Gastrointestinal/Abdomen Exam: soft, normal bowel sounds Pelvic Exam: deferred Rectal Exam: deferred Back Exam: normal inspection Extremity Exam: normal inspection Skin Exam: normal color Final Diagnosis/Problem List - Final Discharge Diagnosis/Problem (1) COPD exacerbation Current Visit: Yes Status: Acute Code(s): J44.1 - CHRONIC OBSTRUCTIVE PULMONARY DISEASE W (ACUTE) EXACERBATION (2) Acute hypoxic respiratory failure Current Visit: Yes Status: Acute Code(s): J96.01 - ACUTE RESPIRATORY FAILURE WITH HYPOXIA (3) Bronchitis Current Visit: Yes Status: Acute Code(s): J40 - BRONCHITIS, NOT SPECIFIED ACUTE OR CHRONIC (4) Depression Current Visit: Yes Status: Acute Code(s): F32.A - DEPRESSION, UNSPECIFIED (5) Hypothyroid Current Visit: Yes Status: Acute Code(s): E03.9 - HYPOTHYROIDISM, UNSPECIFIED (6) Smoker Current Visit: Yes Status: Acute Code(s): F17.200 - NICOTINE DEPENDENCE, UNSPECIFIED, UNCOMPLICATED (7) Neuropathy Current Visit: Yes Status: Acute Code(s): G62.9 - POLYNEUROPATHY, UNSPECIFIED (8) History of breast cancer Current Visit: Yes Status: Acute Code(s): Z85.3 - PERSONAL HISTORY OF MALIGNANT NEOPLASM OF BREAST - Discharge Disposition: Home, Self-Care Condition: Stable Prescriptions: New Amox Tr/Potass Clav. 875 mg [Augmentin 875-125 Tablet] 875 mg PO Q12HT 5 Days #10 tablet Budesonide/Formoterol Fumarate [Budesonide-Formoterol 160-4.5] 4.5 mcg IH BID 30 Days #1 inh Prednisone 20 mg [Deltasone 20 mg] 20 mg PO BID 5 Days #10 tablet Albuterol/Ipratropium 3ml Neb* [DUONEB 0.5-3 MG/3 ml Neb] 3 ml IH Q6H PRN PRN 30 Days #120 amp PRN Reason: Shortness Of Breath/Wheezing Nicotine 21 mg [Nicoderm CQ 21 MG] 21 mg TOP HS 44 Days #44 patch Continue Levothyroxine Sodium 100 Mcg [Synthroid 100 Mcg] 100 mcg PO DAILY Ezetimibe [Zetia] 10 mg PO DAILY Carvedilol 3.125 mg [Coreg 3.125 MG] 3.125 mg PO BID Pregabalin [Lyrica] 75 mg PO BID Meloxicam [Mobic] 15 mg PO DAILY Ascorbic Acid [Vitamin C] 500 mg PO DAILY Ropinirole HCl 0.5 mg [Requip 0.5 MG] 1.5 mg PO DAILY Escitalopram Oxalate [Lexapro] 20 mg PO DAILY Fenofibrate 160 mg PO DAILY Famotidine [Acid Controller] 20 mg PO HS Anastrozole [Arimidex] 1 mg PO HS Aripiprazole [Abilify] 2 mg PO DAILY Guaifenesin [Mucinex] 600 mg PO DAILY Calcium Carbonate/Vitamin D3 [Super Calcium 600-Vit D3 400] 1 tab PO HS Follow up with: SARAVANAN HALLMAN NP [Primary Care Provider] - 08/01/23 1:15 pm
[2023-07-23] MEDS ORDERED: Nicoderm CQ 21 MG TOP SCH (22:00)
== END 2023-07-23 13:20 | disposition home or self-care (01) ==
LOC: ED 20:54 → MED SURG 07-22 00:56
PROVIDERS: ADMIT Internal Medicine; ATTEND Internal Medicine
DX: J44.1 Chronic obstructive pulmonary disease with (acute) exacerbation (principal); J96.01 Acute respiratory failure with hypoxia; J40 Bronchitis, not specified as acute or chronic; F32.A Depression, unspecified; E03.9 Hypothyroidism, unspecified; F17.200 Nicotine dependence, unspecified, uncomplicated; G62.9 Polyneuropathy, unspecified; I10 Essential (primary) hypertension; I25.10 Atherosclerotic heart disease of native coronary artery without angina pectoris; Z85.3 Personal history of malignant neoplasm of breast; Z79.899 Other long term (current) drug therapy; Z20.828 Contact with and (suspected) exposure to other viral communicable diseases
CPT/HCPCS: 0241U; 36000; 36415; 71046; 80048; 80053; 84484; 85025; 93005; 93268; 94640; 94760; 96374; 99284; G0378; Q3014; J1650; J2930; A9270-GY

== ENCOUNTER 2024-04-22 06:12 | Day surgery (SDC) | payer MEDICARE, OTHER ==
[2024-04-22] MEDS: Lactated Ringers 1,000 ML IV SCH (06:48)
[2024-04-22 07:02] VITALS: RESP 18
[2024-04-22] MEDS ORDERED: DIPRIVAN 200 MG/20 ML IV ONE (07:50)
[2024-04-22] MEDS ORDERED: Xylocaine-Mpf 2% 5 Ml Vial ONE (07:51)
[2024-04-22 08:40] VITALS: TEMP 97.5
[2024-04-22 08:52] VITALS: BP 133/68; PULSE 62; O2SAT 97
--- NOTE | 2024-04-23 09:22 | OP ---
SURGERY DATE/TIME: 04/22/2024 5040 - [id number] PREOPERATIVE DIAGNOSIS: Screening exam, history of colon polyps. POSTOPERATIVE DIAGNOSIS: Normal colon. PROCEDURE: Colonoscopy. SURGEON: Ruben Menendez MD MEDICATION: Given by the anesthesia department. INDICATIONS: The patient is a 73-year-old white female who had a colon exam approximately 3 years ago which she reports polyps were removed at that time. The patient now presents for screening evaluation with history of colon polyps. The patient was apprised of the risks of the procedure including the risk of perforation, phlebitis, untoward reaction to medication, bleeding, and missed lesions. The patient verbalized her understanding and desired to have the procedure performed DESCRIPTION OF PROCEDURE AND FINDINGS: The patient was given medication by the anesthesia department. She had continuous pulse oximetry, ECG monitoring, and intermittent blood pressure monitoring during the examination. She was placed in left lateral decubitus position. Digital rectal examination was performed and revealed normal anal sphincter tone, no masses. Hemorrhoids were present. The flexible Olympus videocolonoscope was used to intubate the rectum. A view of the colon was developed sequentially to the cecum. Upon insertion and withdrawal, including retroflexion in the rectum, no mucosal lesions were encountered. The scope was removed. The patient tolerated the procedure well and sent back to outpatient recovery in good condition. The prep was noted to be fair to good.
== END 2024-04-22 08:57 | disposition home or self-care (01) ==
LOC: SDC 06:12
PROVIDERS: ATTEND Family Medicine
DX: Z12.11 Encounter for screening for malignant neoplasm of colon (principal); Z09 Encounter for follow-up examination after completed treatment for conditions other than malignant neoplasm; Z86.010 Personal history of colon polyps; K64.9 Unspecified hemorrhoids
CPT/HCPCS: J2704

== ENCOUNTER 2024-11-20 08:55 | Day surgery (SDC) | payer MEDICARE, OTHER ==
[2024-11-20] MEDS ORDERED: dexAMETHasone sodium phosphate IJ ONE (08:56)
[2024-11-20] MEDS ORDERED: LIDOCAINE HCL 1% 50 MG/5 ML VL IJ ONE (08:56)
[2024-11-20] MEDS ORDERED: Sodium Chloride 0.9(Preservative Free) 10 ML IJ ONE (08:56)
--- NOTE | 2024-11-20 21:05 | XRAY ---
Indication: Left L4-S1 transforaminal MATTHEW. Intraoperative fluoroscopy provided for 42 seconds. 7 digital spot image submitted for interpretation demonstrates posterior needle tips projecting over expected left L4 and L5 nerve roots. Small amount of contrast injected for needle tip basement. Correlate with intraoperative findings/report.
--- NOTE | 2024-11-20 21:51 | XRAY ---
42 seconds of fluoroscopy was used in surgery for a left L4-S1 transforaminal MATTHEW.
== END 2024-11-20 10:54 | disposition home or self-care (01) ==
LOC: SDC-PAIN 08:55
PROVIDERS: ATTEND Psychiatry & Neurology Pain Medicine
DX: M54.16 Radiculopathy, lumbar region (principal)
CPT/HCPCS: 64483; 64484; 72100; 77003; J1100; Q9966

== ENCOUNTER 2025-01-29 10:33 | Day surgery (SDC) | payer MEDICARE, OTHER ==
[2025-01-29] MEDS ORDERED: methylPREDNISolone acetate IM ONE (10:34)
[2025-01-29] MEDS ORDERED: LIDOCAINE HCL 2% 100 MG/5 ML IJ ONE (10:34)
[2025-01-29] MEDS ORDERED: propofoL IV ONE (12:42)
[2025-01-29] MEDS ORDERED: Xylocaine-Mpf 2% 5 Ml Vial ONE (12:54)
--- NOTE | 2025-01-29 13:19 | XRAY ---
Indication: Bilateral L4-S1 MBB. Intraoperative fluoroscopy for right for 24 seconds. Single digital spot image submitted for interpretation demonstrates posterior needle tips projecting over expected left and right L4-S1 nerve roots. Correlate with intraoperative findings/report.
--- NOTE | 2025-01-29 13:22 | XRAY ---
24 seconds of fluoroscopy were used in surgery for a bilateral L4-S1 MBB.
== END 2025-01-29 13:18 | disposition home or self-care (01) ==
LOC: SDC-PAIN 10:33
PROVIDERS: ATTEND Psychiatry & Neurology Pain Medicine
DX: M47.817 Spondylosis without myelopathy or radiculopathy, lumbosacral region (principal)
CPT/HCPCS: 64493; 64494; 72020; J1010; J2704

== ENCOUNTER 2025-04-23 10:43 | Day surgery (SDC) | payer MEDICARE, OTHER ==
[2025-04-23] MEDS ORDERED: Depo-Medrol 40 MG/ML IM ONE (10:44)
[2025-04-23] MEDS ORDERED: LIDOCAINE HCL 1% 50 MG/5 ML VL IJ ONE (10:44)
[2025-04-23] MEDS ORDERED: BUPIVACAINE 0.5% VIAL IJ ONE (10:44)
[2025-04-23] MEDS ORDERED: propofoL IV ONE ×2 (12:58→13:09)
[2025-04-23] MEDS ORDERED: Lactated Ringers 1,000 ML IV ONE (14:32)
--- NOTE | 2025-04-23 15:17 | XRAY ---
Indication: Left L4-S1 RFA. Intraoperative fluoroscopy provided for 15 seconds. 3 digital spot image submitted for interpretation demonstrates posterior needle tips projecting over expected left L4-S1 nerve roots. Correlate with intraoperative findings/report.
--- NOTE | 2025-04-23 22:14 | XRAY ---
15 seconds of fluoroscopy was used in surgery for a left L4-S1 RFA.
== END 2025-04-23 13:26 | disposition home or self-care (01) ==
LOC: SDC-PAIN 10:43
PROVIDERS: ATTEND Psychiatry & Neurology Pain Medicine
DX: M47.817 Spondylosis without myelopathy or radiculopathy, lumbosacral region (principal)